=== PATIENT | female | born 1960 | race Caucasian/White ===

== ENCOUNTER 2024-09-12 19:19 | Emergency (ER) | payer OTHER ==
[~2024-09-12] VITALS: Ht 160 cm; Wt 74.4 kg
[2024-09-12] MEDS ORDERED: KETOROLAC TROMETHAMINE INJ 30 MG/ML VIAL ONE (22:13)
[2024-09-12] MEDS: KETOROLAC TROMETHAMINE INJ 60 MG/2 ML VIAL IM ONE (22:15)
[2024-09-12 22:44] VITALS: BP 110/89; TEMP 98; O2SAT 98
== END 2024-09-12 22:44 | disposition home or self-care (01) ==
LOC: ER 19:23
DX: M71.372 Other bursal cyst, left ankle and foot (principal); M25.472 Effusion, left ankle; Z88.5 Allergy status to narcotic agent
CPT/HCPCS: 99283; 96372; 73610; J1885